=== PATIENT | male | born 1945 | race Asian ===

== ENCOUNTER 2018-06-24 07:18 | Day surgery (SDC) | payer OTHER, BC ==
[2018-06-23 15:03] VITALS: BMI 23.0
[2018-06-24] MEDS ORDERED: SUCCINYLCHOLINE CHLORIDE 200 MG/10 ML VIAL ONE (08:27)
[2018-06-24] MEDS ORDERED: LIDOCAINE HCL/PF 2% SDV 5ML VIAL ONE (08:27)
[2018-06-24] MEDS ORDERED: DEXAMETHASONE SOD PHOSPHATE 4 MG/1 ML VIAL ONE (08:27)
[2018-06-24] MEDS ORDERED: MIDAZOLAM HCL 2 MG/2 ML SINGLE DOSE VIAL ONE (08:27)
[2018-06-24] MEDS ORDERED: PROPOFOL 20 ML ONE (08:27)
[2018-06-24] MEDS ORDERED: GENTAMICIN SO4 80 MG/2 ML VIAL ONE (09:07)
[2018-06-24] MEDS ORDERED: ceFAZolin SODIUM 1 GM VIAL ONE (09:07)
[2018-06-24] MEDS ORDERED: oxyCODONE HCL 5 MG TABLET PO PRN ×2 (09:47→10:08)
--- NOTE | 2018-06-24 09:50 | OP ---
Operative Note - Note: Operative Date: 06/24/18 Pre-Operative Diagnosis: bladder neck stone Operation: cyst/lithalaopaxy/dilation stricture bladder neck Findings: BN stone and BN contracture Post-Operative Diagnosis: Same as Pre-op Surgeon: Samuel Lo Anesthesia: General Specimens Removed: stone frags Estimated Blood Loss (mls): 5 Drains & Tubes with Location: 22 fr quintero Operative Report Dictated: Yes
[2018-06-24] MEDS ORDERED: ELECTROLYTE-148 SOLN 1,000 ML IV SCH (10:00)
[2018-06-24] MEDS ORDERED: ONDANSETRON 4 MG/2 ML VIAL IVPUSH PRN (10:08)
[2018-06-24] MEDS ORDERED: LACTATED RINGERS SOLUTION 1,000 ML IV SCH (10:15)
[2018-06-24 10:48] VITALS: TEMP 97.8
--- NOTE | 2018-06-24 11:57 | OP ---
DATE OF OPERATION: 06/24/2018 PREOPERATIVE DIAGNOSIS: Bladder stone and bladder neck contracture. POSTOPERATIVE DIAGNOSIS: Bladder stone and bladder neck contracture. PROCEDURE: Cystoscopy, litholopaxy, and stone fragmentation, and dilation of bladder neck contracture. SURGEON: Samuel Shields MD INDICATION: Patient is a 73-year-old male with history of prostate cancer status post radiation in the past most recently with slow urination and hematuria. Upon cystoscopy noted to have a stone at the bladder neck obstructing the bladder neck as well as stricture. He was taken to the OR to break up the stone and dilate stricture. Risks, benefits, and alternatives were discussed in detail. DESCRIPTION OF PROCEDURE: Patient was taken to the OR and placed supine on the table. After cardiac monitoring was administered and general anesthesia was established, he was prepped and draped in dorsal lithotomy position. She was given a g of Ancef and gentamycin. The rigid cystoscope was introduced without difficulty and urethra was normal. Prostatic urethra was obstructed by a stone impacted in the bladder neck. Using a grasper, the stone was crushed into several pieces, and these pieces were removed. At this point, then the bladder neck contracture was seen. A guidewire was passed onto the bladder, and bladder neck contracture was dilated with Fatou dilators followed by the cystoscope. Then the 22-E[place]ian cystoscope was then advanced into the bladder without difficulty. The bladder was visualized, and no tumor or stone was noted in the bladder. The cystoscope was then removed, and a 22-E[place]ian Titus was placed to straight drainage. [place]-tinged urine was achieved. The patient was awoken from anesthesia, transferred to recovery in stable condition. There were no complications. Estimated blood loss was minimal. SAMUEL SHIELDS M.D. [id number]
[2018-06-24 14:38] VITALS: BP 148/90; PULSE 82
--- NOTE | 2018-06-28 09:23 | PATH ---
Surgical Pathology Report Patient Name: KT SWEET [facility]. Rec. #: [id number] /Age/Gender: 1945 (Age: 73) / M Account: [id number] Location: [facility] SURGICAL Taken: 06/24/2018 Received: 06/24/2018 Reported: 06/28/2018 Physicians: Samuel oL M.D. Specimen(s) Received BLADDER CALCULI Clinical History Bladder stone Final Diagnosis BLADDER STONE, REMOVAL: CONSISTENT WITH BLADDER CALCULI. GROSS EXAMINATION ONLY. SENT TO CHEMICAL ANALYSIS. Electronically Signed Quinton Briones M.D. Gross Description Received in a container, labeled "bladder stone" are multiple calculi measuring 1 x 1 x 0.3cm in aggregate. Gross examination only. Sent to chemical analysis. LOVE/06/24/2018 dick/06/24/2018
== END 2018-06-24 12:10 | disposition home or self-care (01) ==
LOC: JASU-SURG 07:18
PROVIDERS: ATTEND Urology
PROC: 0TJB8ZZ Inspection of Bladder, Via Natural or Artificial Opening Endoscopic (ICD-10-PCS; 2018-06-24)
PROC: 0TCB8ZZ Extirpation of Matter from Bladder, Via Natural or Artificial Opening Endoscopic (ICD-10-PCS; principal; 2018-06-24 09:00)
DX: N21.0 Calculus in bladder (principal); N32.0 Bladder-neck obstruction
CPT/HCPCS: 36415; 82360; 88300-TC; 94760